=== PATIENT | male | born 1970 | race Caucasian/White ===

== ENCOUNTER 2020-08-22 16:29 | Inpatient (IN) | payer OTHER ==
[~2020-08-22] VITALS: Ht 180.3 cm; Wt 69.2 kg
[~2020-08-22 16:29] MED LIST: BENTYL10 MG PO; INDERAL LA160 M1 PO; KEFLEX250 MG PO; NAPROXEN500 MG PO; ZOFRAN4 MG PO
[2020-08-22 17:46] LABS: BASOPHIL 0.8 % (0-2); EOSINOPHIL 0.2 % (0-5); HCT 45.1 % (42.0-52.0); HGB 16.4 g/dl (13.2-18.0); MCH 34.7 pg (25.0-31.0); MCHC 36.4 g/dL (32.0-36.0); MCV 95.3 fL (78.0-100.0); MONOCYTE 9.3 % (0-12); NEUTROPHIL 72.4 % (41-80); NRBC 0; PLT 133 K/uL (150-400); RBC 4.73 M/uL (4.70-6.00); RDW 12.1 % (11.5-14.0); WBC 6.1 K/uL (4.0-10.5)
[2020-08-22 18:26] LABS: LACTIC ACID 1.9 mmol/L (0.4-1.9)
[2020-08-22 18:33] LABS: ALBUMIN 4.2 g/dL (3.4-5.0); ALKALINE PHOSHATASE 121 U/L (46-116); ALT 42 U/L (16-63); AST 74 U/L (15-37); BILIRUBIN - TOTAL 1.7 mg/dL (0.2-1.0); BUN 7 mg/dL (7-18); BUN/CREAT RATIO (CALC) 9.9 RATIO; CHLORIDE 93 mmol/L (98-107); CO2 (BICARBONATE) 31 mmol/L (21-32); CREATININE 0.71 mg/dL (0.67-1.17); GLOBULIN (CALCULATION) 3.5 g/dL; GLUCOSE 132 mg/dL (74-106); POTASSIUM 3.2 mmol/L (3.5-5.1); TOTAL PROTEIN 7.7 g/dL (6.4-8.2)
[2020-08-22 20:12] LABS: BILIRUBIN 2+ mg/dL (NEGATIVE); BLOOD NEGATIVE Ery/uL (NEGATIVE); CLARITY HAZY (CLEAR); COLOR ORANGE (YELLOW); GLUCOSE (U) TRACE mg/dL (NORMAL); LEUKOCYTES NEGATIVE Leu/uL (NEGATIVE); NITRITE POSITIVE (NEGATIVE); PROTEIN 2+ mg/dL (NEGATIVE); UROBILINOGEN >=8.0 mg/dL (0.2-1.0)
[2020-08-22 20:15] LABS: ECSTASY (MDMA) NEGATIVE (NEGATIVE); MARIJUANA (THC) POSITIVE (NEGATIVE); METHADONE NEGATIVE (NEGATIVE)
[2020-08-22 20:16] LABS: AMPHETAMINES NEGATIVE (NEGATIVE); BARBITURATES NEGATIVE (NEGATIVE); OPIATES POSITIVE (NEGATIVE); OXYCODONE NEGATIVE (NEGATIVE)
[2020-08-22 20:25] LABS: BACTERIA TRACE; SQUAMOUS EPITHELIAL CELLS RARE
[2020-08-23 12:06] LABS: IRON % SATURATION 98.1 %SAT (20-50)
[2020-08-23 12:14] LABS: FOLIC ACID (SERUM) 6.6 ng/mL (8.6-58.9)
[2020-08-24 05:54] LABS: BASOPHIL 0.7 % (0-2); EOSINOPHIL 3.4 % (0-5); HCT 37.2 % (42.0-52.0); HGB 12.7 g/dl (13.2-18.0); MCH 34.1 pg (25.0-31.0); MCHC 34.1 g/dL (32.0-36.0); MONOCYTE 9.7 % (0-12); MPV 12.3 fL (6.0-9.5); NEUTROPHIL 56.8 % (41-80); NRBC 0; PLT 110 K/uL (150-400); RBC 3.72 M/uL (4.70-6.00); RDW 12.1 % (11.5-14.0); WBC 5.6 K/uL (4.0-10.5)
[2020-08-24 06:23] LABS: ALBUMIN 2.8 g/dL (3.4-5.0); BILIRUBIN - TOTAL 0.8 mg/dL (0.2-1.0); BUN/CREAT RATIO (CALC) 8.6 RATIO; CREATININE 0.7 mg/dL (0.67-1.17); GLOBULIN (CALCULATION) 2.7 g/dL; MAGNESIUM 1.3 mg/dL (1.8-2.4); PHOSPHORUS 2.2 mg/dL (2.6-4.7); POTASSIUM 3.6 mmol/L (3.5-5.1)
[2020-08-24 06:25] LABS: TOTAL PROTEIN 5.5 g/dL (6.4-8.2)
== END 2020-08-25 13:50 | disposition home or self-care (01) | DRG 897 ==
LOC: FER 16:29 → FTCU 21:44
PROVIDERS: Hospitalist; Nurse Practitioner Family; ADMIT Internal Medicine
PROC: HZ2ZZZZ Detoxification Services for Substance Abuse Treatment (ICD-10-PCS; principal; 2020-08-22)
DX: F10.139 Alcohol abuse with withdrawal, unspecified (principal); N39.0 Urinary tract infection, site not specified; Z66 Do not resuscitate; F43.10 Post-traumatic stress disorder, unspecified; I10 Essential (primary) hypertension; E83.42 Hypomagnesemia; E87.6 Hypokalemia; F17.210 Nicotine dependence, cigarettes, uncomplicated; E83.39 Other disorders of phosphorus metabolism; M19.90 Unspecified osteoarthritis, unspecified site; Z59.0 Homelessness; Z95.1 Presence of aortocoronary bypass graft
CPT/HCPCS: 36415; 71275; 80053; 80305; 81001; 82607; 82728; 82746; 83540; 83550; 83605; 83735; 84100; 84145; 84484; 85025; 85379; 87040; 93005; 94010; C9113; G0480; J0610; J0696; J1650; J1953; J2060; J2560; J3411; J3475; J7030; J7040; J7050; Q9967; U0002

== ENCOUNTER 2020-12-19 15:33 | Emergency (ER) | payer OTHER ==
[2020-12-19 17:13] LABS: BASOPHIL 0.7 % (0-2); EOSINOPHIL 1.2 % (0-5); HCT 40.2 % (42.0-52.0); HGB 13.7 g/dl (13.2-18.0); MCH 32.1 pg (25.0-31.0); MCHC 34.1 g/dL (32.0-36.0); MCV 94.1 fL (78.0-100.0); MONOCYTE 10.6 % (0-12); MPV 11.7 fL (6.0-9.5); NEUTROPHIL 68.3 % (41-80); NRBC 0; PLT 171 K/uL (150-400); RBC 4.27 M/uL (4.70-6.00); RDW 14.4 % (11.5-14.0); WBC 7.6 K/uL (4.0-10.5)
[2020-12-19 17:18] LABS: BILIRUBIN NEGATIVE (NEGATIVE); BLOOD NEGATIVE Ery/uL (NEGATIVE); CLARITY CLEAR (CLEAR); COLOR YELLOW (YELLOW); GLUCOSE (U) NORMAL (NORMAL); LEUKOCYTES NEGATIVE Leu/uL (NEGATIVE); NITRITE NEGATIVE (NEGATIVE); PROTEIN NEGATIVE (NEGATIVE); UROBILINOGEN 0.2 mg/dL (0.2-1.0); pH 7.5 (5.0-9.0)
[2020-12-19 17:22] LABS: INR 0.98 (0.9-1.2); PROTHROMBIN TIME 12.3 SECONDS (11.4-13.6); PTT 25.9 SECONDS (22.2-34.7)
[2020-12-19 17:23] LABS: D-DIMER 0.46 ug/mLFEU (0.00-0.41)
[2020-12-19 17:24] LABS: AMPHETAMINES NEGATIVE (NEGATIVE); BARBITURATES NEGATIVE (NEGATIVE); ECSTASY (MDMA) NEGATIVE (NEGATIVE); MARIJUANA (THC) POSITIVE (NEGATIVE); METHADONE NEGATIVE (NEGATIVE); OPIATES NEGATIVE (NEGATIVE); OXYCODONE NEGATIVE (NEGATIVE)
[2020-12-19 17:27] LABS: IRON % SATURATION 31.7 %SAT (20-50)
[2020-12-19 17:34] LABS: ALBUMIN 3.5 g/dL (3.4-5.0); BILIRUBIN - TOTAL 0.3 mg/dL (0.2-1.0); BUN/CREAT RATIO (CALC) 8.2 RATIO; CREATININE 0.97 mg/dL (0.67-1.17); GLOBULIN (CALCULATION) 3.2 g/dL; MAGNESIUM 1.6 mg/dL (1.8-2.4); POTASSIUM 4.3 mmol/L (3.5-5.1); TOTAL PROTEIN 6.7 g/dL (6.4-8.2)
[2020-12-19 17:37] LABS: PRO-BNP 301 pg/mL (<125)
[2020-12-19] MEDS ORDERED: NAPROXEN500 MG PO (19:08)
[2020-12-19] MEDS ORDERED: VISTARIL25 MG PO (19:08)
== END 2020-12-19 20:14 | disposition home or self-care (01) ==
LOC: FER 15:33
PROVIDERS: Emergency Medicine
DX: F41.9 Anxiety disorder, unspecified (principal); F43.9 Reaction to severe stress, unspecified; R55 Syncope and collapse; I80.8 Phlebitis and thrombophlebitis of other sites; F17.210 Nicotine dependence, cigarettes, uncomplicated
CPT/HCPCS: 36415; 70450; 71260; 80053; 80305; 81003; 82550; 83540; 83550; 83605; 83690; 83735; 83880; 84145; 84443; 84484; 85025; 85379; 85610; 85730; 93005; G0480; J7030; Q9967

== ENCOUNTER 2021-01-09 22:27 | Emergency (ER) | payer OTHER ==
[~2021-01-09 22:27] MED LIST changes: +VISTARIL25 MG PO
[2021-01-10 00:01] LABS: BASOPHIL 1.1 % (0-2); EOSINOPHIL 1.1 % (0-5); HCT 43.5 % (42.0-52.0); HGB 15.4 g/dl (13.2-18.0); LYMPHOCYTE 37.3 % (15-48); MCH 33.2 pg (25.0-31.0); MCHC 35.4 g/dL (32.0-36.0); MCV 93.8 fL (78.0-100.0); MONOCYTE 11.2 % (0-12); MPV 10.4 fL (6.0-9.5); NEUTROPHIL 49.1 % (41-80); NRBC 0; PLT 175 K/uL (150-400); RBC 4.64 M/uL (4.70-6.00); RDW 14.6 % (11.5-14.0); WBC 4.5 K/uL (4.0-10.5)
[2021-01-10 00:33] LABS: BUN 8 mg/dL (7-18); CHLORIDE 102 mmol/L (98-107); CO2 (BICARBONATE) 26 mmol/L (21-32); CREATININE 0.62 mg/dL (0.67-1.17); GLUCOSE 157 mg/dL (74-106); POTASSIUM 3.3 mmol/L (3.5-5.1); TOTAL PROTEIN 7.2 g/dL (6.4-8.2)
[2021-01-10 00:34] LABS: ACETAMINOPHEN (TYLENOL) < 2.0 ug/mL (10.0-30.0); ALBUMIN 3.8 g/dL (3.4-5.0); ALKALINE PHOSHATASE 82 U/L (46-116); ALT 58 U/L (16-63); AST 73 U/L (15-37); BILIRUBIN - TOTAL 0.5 mg/dL (0.2-1.0); CPK 135 U/L (39-308); GLOBULIN (CALCULATION) 3.4 g/dL; LIPASE 113 U/L (73-393); MAGNESIUM 1.7 mg/dL (1.8-2.4)
[2021-01-10 00:36] LABS: LACTIC ACID 3.8 mmol/L (0.4-1.9)
[2021-01-10 01:03] LABS: MARIJUANA (THC) POSITIVE (NEGATIVE)
[2021-01-10 01:04] LABS: AMPHETAMINES NEGATIVE (NEGATIVE); BARBITURATES NEGATIVE (NEGATIVE); BILIRUBIN NEGATIVE (NEGATIVE); BLOOD NEGATIVE Ery/uL (NEGATIVE); CLARITY CLEAR (CLEAR); COLOR YELLOW (YELLOW); ECSTASY (MDMA) NEGATIVE (NEGATIVE); GLUCOSE (U) NORMAL (NORMAL); LEUKOCYTES NEGATIVE Leu/uL (NEGATIVE); METHADONE NEGATIVE (NEGATIVE); NITRITE NEGATIVE (NEGATIVE); OPIATES NEGATIVE (NEGATIVE); OXYCODONE NEGATIVE (NEGATIVE); PROTEIN NEGATIVE (NEGATIVE); SPECIFIC GRAVITY 1.015 (1.001-1.030); UROBILINOGEN 0.2 mg/dL (0.2-1.0)
[2021-01-10] MEDS ORDERED: KEPPRA250 MG PO (05:40)
[2021-01-10] MEDS ORDERED: INDERAL LA160 M1 PO (05:40)
== END 2021-01-10 08:40 | disposition home or self-care (01) ==
LOC: FER 22:27
PROVIDERS: Emergency Medicine Emergency Medical Services
DX: R56.9 Unspecified convulsions (principal); F10.129 Alcohol abuse with intoxication, unspecified; I10 Essential (primary) hypertension; Z20.822 Contact with and (suspected) exposure to COVID-19; F17.210 Nicotine dependence, cigarettes, uncomplicated; Y90.8 Blood alcohol level of 240 mg/100 ml or more
CPT/HCPCS: 36415; 70450; 70551; 71045; 80053; 80305; 81003; 82550; 83605; 83690; 83735; 84484; 85025; 93005; G0480; J2060; J3411; J7030; J7120; U0002

== ENCOUNTER 2021-02-12 15:08 | Emergency (ER) | payer OTHER ==
[~2021-02-12 15:08] MED LIST changes: +KEPPRA250 MG PO
[2021-02-12 15:56] LABS: EOSINOPHIL 0.7 % (0-5); HCT 49.9 % (42.0-52.0); HGB 17.5 g/dl (13.2-18.0); LYMPHOCYTE 41.6 % (15-48); MCHC 35.1 g/dL (32.0-36.0); MONOCYTE 9.9 % (0-12); MPV 10.6 fL (6.0-9.5); NEUTROPHIL 45.6 % (41-80); NRBC 0; PLT 229 K/uL (150-400); RBC 5.31 M/uL (4.70-6.00); RDW 14.6 % (11.5-14.0)
[2021-02-12 16:03] LABS: ALBUMIN 4.6 g/dL (3.4-5.0); BILIRUBIN - TOTAL 1.2 mg/dL (0.2-1.0); BUN/CREAT RATIO (CALC) 13.9 RATIO; CREATININE 0.72 mg/dL (0.67-1.17); GLOBULIN (CALCULATION) 3.6 g/dL; POTASSIUM 3.2 mmol/L (3.5-5.1); TOTAL PROTEIN 8.2 g/dL (6.4-8.2)
[2021-02-12 16:09] LABS: INR 0.94 (0.9-1.2)
== END 2021-02-12 17:40 | disposition home or self-care (01) ==
LOC: FER 15:08
PROVIDERS: Emergency Medicine
DX: F10.129 Alcohol abuse with intoxication, unspecified (principal); I10 Essential (primary) hypertension; F17.200 Nicotine dependence, unspecified, uncomplicated; Y90.8 Blood alcohol level of 240 mg/100 ml or more
CPT/HCPCS: 36415; 71045; 80053; 83690; 84484; 85025; 85610; 93005; G0480; J2405; J3411; J3475; J7030

== ENCOUNTER 2021-02-13 11:31 | Emergency (ER) | payer OTHER | END 2021-02-13 12:45 | disposition left against medical advice (07) | LOC: FER 11:31 | DX: F10.10 Alcohol abuse, uncomplicated (principal); F17.200 Nicotine dependence, unspecified, uncomplicated; Z53.20 Procedure and treatment not carried out because of patient's decision for unspecified reasons | CPT/HCPCS: 99283 ==

== ENCOUNTER 2021-05-30 03:47 | Emergency (ER) | payer OTHER ==
[2021-05-30 04:39] LABS: EOSINOPHIL 0.6 % (0-5); HCT 46.6 % (42.0-52.0); HGB 16.1 g/dl (13.2-18.0); LYMPHOCYTE 29.6 % (15-48); MCH 31.1 pg (25.0-31.0); MCHC 34.5 g/dL (32.0-36.0); MCV 90.1 fL (78.0-100.0); MONOCYTE 9.2 % (0-12); MPV 10.1 fL (6.0-9.5); NEUTROPHIL 59.3 % (41-80); NRBC 0; PLT 261 K/uL (150-400); RBC 5.17 M/uL (4.70-6.00); RDW 12.8 % (11.5-14.0); WBC 6.2 K/uL (4.0-10.5)
[2021-05-30 04:42] LABS: CORONAVIRUS 2019 SARS-COV-2 NEGATIVE (NEGATIVE); INFLUENZA A NAA NEGATIVE (NEGATIVE)
[2021-05-30 04:58] LABS: ALBUMIN 4.1 g/dL (3.4-5.0); BILIRUBIN - TOTAL 0.6 mg/dL (0.2-1.0); BUN/CREAT RATIO (CALC) 16.7 RATIO; CREATININE 0.66 mg/dL (0.67-1.17); GLOBULIN (CALCULATION) 3.5 g/dL; POTASSIUM 3.8 mmol/L (3.5-5.1); TOTAL PROTEIN 7.6 g/dL (6.4-8.2)
[2021-05-30 05:03] LABS: LACTIC ACID 2.6 mmol/L (0.4-1.9)
[2021-05-30 05:12] LABS: BILIRUBIN NEGATIVE (NEGATIVE); BLOOD NEGATIVE Ery/uL (NEGATIVE); CLARITY CLEAR (CLEAR); COLOR YELLOW (YELLOW); GLUCOSE (U) NORMAL (NORMAL); LEUKOCYTES NEGATIVE Leu/uL (NEGATIVE); NITRITE NEGATIVE (NEGATIVE); PROTEIN 1+ mg/dL (NEGATIVE); SPECIFIC GRAVITY 1.015 (1.001-1.030)
[2021-05-30 05:26] LABS: BACTERIA TRACE; MUCOUS TRACE; SQUAMOUS EPITHELIAL CELLS RARE
[2021-05-30] MEDS ORDERED: ZOFRAN4 M1 PO (07:01)
== END 2021-05-30 07:18 | disposition home or self-care (01) ==
LOC: FER 03:47
PROVIDERS: Emergency Medicine
DX: N50.89 Other specified disorders of the male genital organs (principal); R53.83 Other fatigue; R11.10 Vomiting, unspecified; I10 Essential (primary) hypertension; F17.200 Nicotine dependence, unspecified, uncomplicated; Z20.822 Contact with and (suspected) exposure to COVID-19
CPT/HCPCS: 36415; 71045; 71275; 76870; 80053; 81001; 83605; 84145; 84484; 85025; 85379; 87040; 93005; J2405; J2543; J7030; U0002

== ENCOUNTER 2021-07-01 00:26 | Emergency (ER) | payer OTHER | END 2021-07-01 07:00 | disposition home or self-care (01) | LOC: FER 00:26 | DX: U07.1 COVID-19 (principal); I10 Essential (primary) hypertension; F17.210 Nicotine dependence, cigarettes, uncomplicated ==

== ENCOUNTER 2021-08-05 16:42 | Emergency (ER) | payer OTHER ==
[~2021-08-05 16:42] MED LIST changes: +AZITHROMYCIN250 MG PO; +PREDNISONE50 M1 PO; +ZOFRAN4 M1 PO
[2021-08-05 17:55] LABS: BASOPHIL 1.8 % (0-2); EOSINOPHIL 0 % (0-5); HCT 42.6 % (42.0-52.0); HGB 14.9 g/dl (13.2-18.0); LYMPHOCYTE 27.2 % (15-48); MCV 94.5 fL (78.0-100.0); MONOCYTE 12.1 % (0-12); MPV 9.9 fL (6.0-9.5); NEUTROPHIL 58.7 % (41-80); NRBC 0; PLT 170 K/uL (150-400); RBC 4.51 M/uL (4.70-6.00); RDW 15.9 % (11.5-14.0); WBC 4.4 K/uL (4.0-10.5)
[2021-08-05 17:58] LABS: BILIRUBIN NEGATIVE (NEGATIVE); BLOOD NEGATIVE Ery/uL (NEGATIVE); CLARITY CLEAR (CLEAR); COLOR YELLOW (YELLOW); GLUCOSE (U) NORMAL (NORMAL); LEUKOCYTES NEGATIVE Leu/uL (NEGATIVE); NITRITE NEGATIVE (NEGATIVE); PROTEIN NEGATIVE (NEGATIVE); SPECIFIC GRAVITY 1.015 (1.001-1.030); UROBILINOGEN 0.2 mg/dL (0.2-1.0)
[2021-08-05 18:01] LABS: AMPHETAMINES NEGATIVE (NEGATIVE); BARBITURATES NEGATIVE (NEGATIVE); ECSTASY (MDMA) NEGATIVE (NEGATIVE); MARIJUANA (THC) POSITIVE (NEGATIVE); METHADONE NEGATIVE (NEGATIVE); OPIATES NEGATIVE (NEGATIVE); OXYCODONE NEGATIVE (NEGATIVE)
[2021-08-05 18:27] LABS: ALBUMIN 4.3 g/dL (3.4-5.0); ALKALINE PHOSHATASE 86 U/L (46-116); ALT 63 U/L (16-63); AST 66 U/L (15-37); BILIRUBIN - TOTAL 0.3 mg/dL (0.2-1.0); BUN 9 mg/dL (7-18); BUN/CREAT RATIO (CALC) 14.1 RATIO; CHLORIDE 99 mmol/L (98-107); CO2 (BICARBONATE) 24 mmol/L (21-32); CREATININE 0.64 mg/dL (0.67-1.17); GLOBULIN (CALCULATION) 2.9 g/dL; GLUCOSE 116 mg/dL (74-106); POTASSIUM 3.6 mmol/L (3.5-5.1); TOTAL PROTEIN 7.2 g/dL (6.4-8.2)
[2021-08-05 18:28] LABS: ACETAMINOPHEN (TYLENOL) < 3.0 ug/mL (10.0-30.0)
== END 2021-08-06 08:00 | disposition other institution (70) ==
LOC: FER 16:42
PROVIDERS: Internal Medicine
DX: F10.129 Alcohol abuse with intoxication, unspecified (principal); I10 Essential (primary) hypertension; F17.210 Nicotine dependence, cigarettes, uncomplicated; Z20.822 Contact with and (suspected) exposure to COVID-19; Y90.8 Blood alcohol level of 240 mg/100 ml or more
CPT/HCPCS: 36415; 80053; 80305; 81003; 85025; G0480; J2060; J2550; J2560; J7120; U0002